=== PATIENT | male | born 1940 | race Caucasian/White ===

== ENCOUNTER → 2017-02-24 | Outpatient (CLI) | payer OTHER ==
[~2017-02-24] MED LIST: AGGRENOX 25 MG1 EACH PO; APAP650 PO; ARTIFICIAL TEAR15 M1 OPHTHALMIC; ATORVASTATIN CA40 MG PO; BENADRYL25 MG PO; CO-ENZYME Q-1010 MG PO; COREG25 M1 PO; ENOXAPARIN40 MG/0.1 SUBQ; GLIPIZIDE 10 MG10 MG PO; HUMULIN N100 UNIT/1 SUBQ; HYZAAR 100-12.1 EACH PO; LASIX 40 MG TAB40 M2 PO; MEGESTROL400 MG/11 PO; MELATONIN5 M1 PO; METFORMIN HCL500 MG PO; NORVASC5 MG PO; OMEGA-31000 M1 PO; ONDANSETRON HCL4 M2 PO; PIOGLITAZONE15 MG PO; PROTONIX40 M1 PO; PROVIGIL 200 M200 M1 PO; REMERON15 MG PO; SERTRALINE HCL50 MG PO; TUMS PO; VITAMIN B-12500 MCG PO; VITAMIN D1000 UNI1 PO; VITAMIN D5000 UNIT PO; XALATAN2.5 ML OPHTHALMIC
== END ==
LOC: M.WC 02:10
DX: E11.622 Type 2 diabetes mellitus with other skin ulcer (principal); L97.221 Non-pressure chronic ulcer of left calf limited to breakdown of skin; I70.248 Atherosclerosis of native arteries of left leg with ulceration of other part of lower leg; I87.312 Chronic venous hypertension (idiopathic) with ulcer of left lower extremity; I25.10 Atherosclerotic heart disease of native coronary artery without angina pectoris; E03.9 Hypothyroidism, unspecified; F33.1 Major depressive disorder, recurrent, moderate; E11.40 Type 2 diabetes mellitus with diabetic neuropathy, unspecified; E11.22 Type 2 diabetes mellitus with diabetic chronic kidney disease; I12.9 Hypertensive chronic kidney disease with stage 1 through stage 4 chronic kidney disease, or unspecified chronic kidney disease; N18.9 Chronic kidney disease, unspecified; Z87.891 Personal history of nicotine dependence

== ENCOUNTER → 2017-03-10 | Outpatient (CLI) | payer OTHER | LOC: M.WC 02:20 | DX: E11.622 Type 2 diabetes mellitus with other skin ulcer (principal); I87.312 Chronic venous hypertension (idiopathic) with ulcer of left lower extremity; I70.248 Atherosclerosis of native arteries of left leg with ulceration of other part of lower leg; L97.221 Non-pressure chronic ulcer of left calf limited to breakdown of skin; I25.10 Atherosclerotic heart disease of native coronary artery without angina pectoris; E03.8 Other specified hypothyroidism; F33.1 Major depressive disorder, recurrent, moderate; E11.40 Type 2 diabetes mellitus with diabetic neuropathy, unspecified; E11.22 Type 2 diabetes mellitus with diabetic chronic kidney disease; I12.9 Hypertensive chronic kidney disease with stage 1 through stage 4 chronic kidney disease, or unspecified chronic kidney disease; N18.9 Chronic kidney disease, unspecified; Z87.891 Personal history of nicotine dependence ==

== ENCOUNTER → 2017-03-24 | Outpatient (CLI) | payer OTHER | LOC: M.WC 01:45 | DX: E11.622 Type 2 diabetes mellitus with other skin ulcer (principal); I70.248 Atherosclerosis of native arteries of left leg with ulceration of other part of lower leg; L97.221 Non-pressure chronic ulcer of left calf limited to breakdown of skin; I25.10 Atherosclerotic heart disease of native coronary artery without angina pectoris; E03.9 Hypothyroidism, unspecified; F33.1 Major depressive disorder, recurrent, moderate; E11.40 Type 2 diabetes mellitus with diabetic neuropathy, unspecified; E11.22 Type 2 diabetes mellitus with diabetic chronic kidney disease; I12.9 Hypertensive chronic kidney disease with stage 1 through stage 4 chronic kidney disease, or unspecified chronic kidney disease; N18.2 Chronic kidney disease, stage 2 (mild); Z87.891 Personal history of nicotine dependence ==

== ENCOUNTER 2017-10-13 11:13 | Inpatient (IN) | payer OTHER ==
[~2017-10-13] VITALS: Ht 182.9 cm; Wt 108.9 kg
[2017-10-13] MEDS ORDERED: APAP650 PO (11:20)
[2017-10-13] MEDS ORDERED: NORVASC5 MG PO (11:21)
[2017-10-13] MEDS ORDERED: AGGRENOX 25 MG1 EACH PO (11:22)
[2017-10-13] MEDS ORDERED: COREG25 M1 PO (11:24)
[2017-10-13] MEDS ORDERED: VITAMIN D5000 UNIT PO (11:24)
[2017-10-13] MEDS ORDERED: CO-ENZYME Q-1010 MG PO (11:25)
[2017-10-13] MEDS ORDERED: LASIX 40 MG TAB40 M2 PO (11:26)
[2017-10-13] MEDS ORDERED: VITAMIN B-12500 MCG PO (11:26)
[2017-10-13] MEDS ORDERED: GLIPIZIDE 10 MG10 MG PO (11:27)
[2017-10-13] MEDS ORDERED: HUMULIN N100 UNIT/1 SUBQ (11:30)
[2017-10-13] MEDS ORDERED: XALATAN2.5 ML OPHTHALMIC (11:30)
[2017-10-13] MEDS ORDERED: HYZAAR 100-12.1 EACH PO (11:31)
[2017-10-13] MEDS ORDERED: METFORMIN HCL500 MG PO (11:32)
[2017-10-13] MEDS ORDERED: OMEGA-31000 M1 PO (11:37)
[2017-10-13] MEDS ORDERED: PIOGLITAZONE15 MG PO (11:38)
[2017-10-13 11:55] VITALS: BP 140/70
[2017-10-13 20:00] VITALS: BP 138/58
[2017-10-14 04:43] LABS: HEMATOCRIT 43.3 % (42.0-52.0); HEMOGLOBIN 14.7 gm/dL (14.0-18.0); MCH 31.2 pg (26.0-34.0); MCHC 34.1 g/dL (28.0-37.0); MCV 91.5 fL (80.0-100.0); MPV 8.6 fl. (7.2-11.1); RBC 4.73 mil/uL (4.50-6.00); RDW-CV 14.9 % (10.5-14.5); WBC 12.1 thou/uL (4.0-11.0)
[2017-10-14 04:56] LABS: CREATININE 1.3 mg/dL (0.6-1.3)
[2017-10-14 08:23] VITALS: BP 174/63
[2017-10-14 19:50] VITALS: BP 110/34
[2017-10-15 05:30] LABS: URINE BILIRUBIN NEGATIVE (Negative); URINE BLOOD NEGATIVE (Negative); URINE CLARITY CLEAR; URINE COLOR YELLOW; URINE GLUCOSE-RANDOM NEGATIVE (Negative); URINE KETONES NEGATIVE (Negative); URINE LEUKOCYTES-REFLEX NEGATIVE (Negative); URINE NITRITE-REFLEX NEGATIVE (Negative); URINE PROTEIN NEGATIVE (Negative); URINE UROBILINOGEN 0.2 E.U./dl (0.2-1.0)
[2017-10-15 08:00] VITALS: BP 157/70
[2017-10-15 20:00] VITALS: BP 114/47
[2017-10-16 08:00] VITALS: BP 130/57
[2017-10-16 20:00] VITALS: BP 141/62
[2017-10-17 08:00] VITALS: BP 136/60
[2017-10-17 19:45] VITALS: BP 135/54
[2017-10-18 04:57] LABS: CHOLESTEROL 138 mg/dL (<200); HDL CHOLESTEROL 45 mg/dL (>40); LDL CHOLESTEROL 70 mg/dL (<100); TC:HDL 3.1 Ratio (Not establshd); TRIGLYCERIDE 115 mg/dL (<150); VLDL 23 mg/dL (<40)
[2017-10-18 05:01] LABS: SERUM ASSESSMENT Clear
[2017-10-18 08:03] VITALS: BP 145/56
[2017-10-18 20:20] VITALS: BP 102/57
[2017-10-19 08:00] VITALS: BP 117/60
[2017-10-19 20:00] VITALS: BP 143/56
[2017-10-20 07:30] VITALS: BP 139/53
[2017-10-20 17:18] VITALS: BP 138/53
[2017-10-20 20:00] VITALS: BP 150/52
[2017-10-21 08:00] VITALS: BP 152/63
[2017-10-21 19:32] VITALS: BP 110/40
[2017-10-22 08:00] VITALS: BP 128/40
[2017-10-22 19:24] VITALS: BP 114/40
[2017-10-23 05:08] LABS: HEMATOCRIT 37.9 % (42.0-52.0); HEMOGLOBIN 13.1 gm/dL (14.0-18.0); MCH 31.5 pg (26.0-34.0); MCHC 34.5 g/dL (28.0-37.0); MCV 91.4 fL (80.0-100.0); MPV 8.9 fl. (7.2-11.1); RBC 4.15 mil/uL (4.50-6.00); RDW-CV 14.6 % (10.5-14.5); WBC 13.7 thou/uL (4.0-11.0)
[2017-10-23 05:32] LABS: CALCIUM 9.1 mg/dL (8.5-10.1); MAGNESIUM 2.4 mg/dL (1.8-2.4); POTASSIUM 4.4 mmol/L (3.5-5.1); TOTAL BILIRUBIN 0.4 mg/dL (<0.1-1.0); TOTAL PROTEIN 6.7 g/dL (6.4-8.2)
[2017-10-23 08:15] VITALS: BP 152/57
[2017-10-23 20:00] VITALS: BP 132/43
[2017-10-24 05:00] LABS: CALCIUM 8.9 mg/dL (8.5-10.1); CREATININE 1.5 mg/dL (0.6-1.3); POTASSIUM 4.9 mmol/L (3.5-5.1)
[2017-10-24 08:15] VITALS: BP 136/34
[2017-10-24 17:00] VITALS: BP 153/47
[2017-10-24 19:25] VITALS: BP 119/32
[2017-10-25 07:30] VITALS: BP 150/54
[2017-10-25 17:15] VITALS: BP 147/48
[2017-10-25 20:00] VITALS: BP 133/47
[2017-10-26 07:55] VITALS: BP 168/68
[2017-10-26 18:55] VITALS: BP 162/51
[2017-10-26 21:10] VITALS: BP 137/55
[2017-10-27 04:33] LABS: HEMATOCRIT 36.6 % (42.0-52.0); HEMOGLOBIN 12.2 gm/dL (14.0-18.0); MCH 30.4 pg (26.0-34.0); MCHC 33.2 g/dL (28.0-37.0); MCV 91.4 fL (80.0-100.0); MPV 7.9 fl. (7.2-11.1); RDW-CV 14.2 % (10.5-14.5); WBC 16.4 thou/uL (4.0-11.0)
[2017-10-27 04:58] LABS: ALBUMIN 2.5 g/dL (3.4-5.0); CALCIUM 8.7 mg/dL (8.5-10.1); CREATININE 1.1 mg/dL (0.6-1.3); POTASSIUM 4.6 mmol/L (3.5-5.1); TOTAL BILIRUBIN 0.4 mg/dL (<0.1-1.0); TOTAL PROTEIN 6.9 g/dL (6.4-8.2)
[2017-10-27 08:00] VITALS: BP 187/70
[2017-10-27 19:58] VITALS: BP 157/52
[2017-10-28 08:00] VITALS: BP 151/59
[2017-10-28 19:45] VITALS: BP 117/54
[2017-10-29 07:30] VITALS: BP 165/62
[2017-10-29 17:15] VITALS: BP 137/53
[2017-10-29 19:45] VITALS: BP 142/85
[2017-10-30 08:05] VITALS: BP 166/66
[2017-10-30 20:00] VITALS: BP 135/51
[2017-10-31 07:30] VITALS: BP 165/68
[2017-10-31 17:00] VITALS: BP 125/67
[2017-10-31 20:00] VITALS: BP 115/49
[2017-11-01 08:00] VITALS: BP 144/57
[2017-11-01 09:00] VITALS: BP 144/57
[2017-11-01 20:00] VITALS: BP 113/44
[2017-11-02 08:00] VITALS: BP 150/48
[2017-11-02 20:00] VITALS: BP 128/53
[2017-11-03 08:24] VITALS: BP 157/67
[2017-11-03 19:50] VITALS: BP 89/44
[2017-11-04 08:02] VITALS: BP 145/52
[2017-11-04 19:50] VITALS: BP 111/50
[2017-11-05 08:00] VITALS: BP 141/54
[2017-11-05 16:48] VITALS: BP 100/46
[2017-11-05 20:00] VITALS: BP 125/53
[2017-11-06 07:30] VITALS: BP 167/60
[2017-11-06 17:00] VITALS: BP 116/44
[2017-11-06 19:00] VITALS: BP 114/60
[2017-11-07 07:15] VITALS: BP 144/64
[2017-11-07 17:00] VITALS: BP 121/48
[2017-11-07 19:30] VITALS: BP 113/49
[2017-11-08 08:25] VITALS: BP 152/53
[2017-11-08 19:26] VITALS: BP 106/46
[2017-11-09 09:00] VITALS: BP 110/54
[2017-11-09 19:54] VITALS: BP 95/42
[2017-11-10 01:58] VITALS: BP 95/42
[2017-11-10] MEDS ORDERED: ARTIFICIAL TEAR15 M1 OPHTHALMIC ×2 (02:20→02:21)
[2017-11-10] MEDS ORDERED: BENADRYL25 MG PO (02:22)
[2017-11-10] MEDS ORDERED: ATORVASTATIN CA40 MG PO (02:25)
[2017-11-10] MEDS ORDERED: ENOXAPARIN40 MG/0.1 SUBQ (02:27)
[2017-11-10] MEDS ORDERED: MEGESTROL400 MG/11 PO (02:29)
[2017-11-10] MEDS ORDERED: MELATONIN5 M1 PO (02:30)
[2017-11-10] MEDS ORDERED: PROTONIX40 M1 PO (02:31)
[2017-11-10] MEDS ORDERED: PROVIGIL 200 M200 M1 PO (02:33)
[2017-11-10] MEDS ORDERED: REMERON15 MG PO (02:36)
[2017-11-10] MEDS ORDERED: TUMS PO (02:38)
[2017-11-10] MEDS ORDERED: VITAMIN D1000 UNI1 PO (02:41)
[2017-11-10] MEDS ORDERED: XALATAN2.5 ML OPHTHALMIC (02:53)
[2017-11-10] MEDS ORDERED: ONDANSETRON HCL4 M2 PO (02:57)
[2017-11-10] MEDS ORDERED: SERTRALINE HCL50 MG PO (02:58)
[2017-11-10] MEDS ORDERED: GLIPIZIDE 10 MG10 MG PO (03:21)
[2017-11-10 08:00] VITALS: BP 147/61
--- NOTE | 2017-11-10 13:18 | PLAN ---
[address] [address] REHAB UNIT PLAN OF CARE Name: GIOVANNA YUAN Room: [address] IN M.R.#: [id number] Admission: 10/13/17 Attend Phys: Theodora Richard DO Discharge: Date of : 42 Report #: [id number] THIS REPORT FOR: //name// CC: Meliton Richard DATE OF SERVICE: 10/14/2017 This is a female admitted to inpatient rehabilitation to facilitate safe discharge home status post right cerebrovascular accident with left hemiparesis, upper and lower extremity, also multiple medical comorbidities. Previous level of function was independent with activities of daily living. Current level of function is minimum to moderate assistance of 1-2 depending on therapy, activity and time of day. Estimated length of stay 14-16 days. MEDICAL PROGNOSIS: Good. REHABILITATION PROGNOSIS: Good. Physical therapy will see the patient 60-90 minutes per day, 5 days per week, working on upper and lower body strength, balance, coordination, navigation. Occupational therapy will work with the patient 60-90 minutes per day, 5 days per week, working on upper and lower body strength, balance, coordination, navigation, bathing, dressing and toileting. Speech and language pathology will work with the patient 30-90 minutes per day, 5 days per week, working on memory, cognition, expression. This is an overall plan of care and may change from time to time. We will team him weekly and make changes to plan of care as needed. <ELECTRONICALLY SIGNED> By: Theodora Richard DO 11/10/17 1318 1315 [id number] Rihcard DO /nt
--- NOTE | 2017-11-10 13:18 | H ---
[address] [place] [address] HISTORY AND PHYSICAL Name: GIOVANNA YUAN Room: [address] IN .R.#: [id number] Admission: 10/13/17 Attend Phys: Theodora Richard DO Discharge: Date of : 42 Report #: [id number] THIS REPORT FOR: //name// CC: Meliton Richard DATE OF SERVICE: 10/13/2017 HISTORY OF PRESENT ILLNESS: Right cerebrovascular accident with left hemiparesis with upper and lower body residual, no significant changes since the preadmission screening. Previous level of function was modified independent to independent with activities of daily living. Current level of function is lwzkuzf-[id number]-[id number] of 1-2 depending on therapy, activity and time of the day. Estimated length of stay 14-16 days with discharge disposition to the home setting with supportive family where he has supervision and an accommodative house. PAST MEDICAL HISTORY: HTN DMII HLD CAD CKD2 GERD PVD [place] OA OBESITY PERIPHERAL NEUROPATHY PAST SURGICAL HISTORY: CABG ANGIOPLASTY WITH STENT RTC REPAIR LLE STENT B/L CATARACT SX MEDICATIONS: Reviewed, reconciled and are available in the MAR. ALLERGIES: PLAVIX REVIEW OF SYSTEMS: A 14-point review of systems done was negative except as mentioned in HPI, specifically no fever, chest pain, shortness of breath, [address] [place] [address] HISTORY AND PHYSICAL Name: GIOVANNA YUAN Room: [facility] ADM IN .R.#: [id number] Admission: 10/13/17 Attend Phys: Theodora Richard DO Discharge: Date of : 42 Report #: [id number] abdominal pain or distention. PHYSICAL EXAMINATION: AO, NAD VSS HEAD: ATRAUMATIC PEERL LUNG: SYMMETRIC SKIN: WARM AND DRY NEURO: LEFT UE AND LE HEMIPARESIS ASSESSMENT: 1. Right cerebrovascular accident with left residual hemiparesis, upper and lower extremity. 2. Multiple medical comorbidities requiring acute daily medical care. PLAN: 1. PT, OT, speech, language, case management, nursing and HIMS to make evaluations and recommendations. 2. We will team HIM weekly and make changes to plan of care as needed. <ELECTRONICALLY SIGNED> By: Theodora Richard DO 11/10/17 1318 1313 [id number] Richard DO /nt
[2017-11-10 19:55] VITALS: BP 95/38
[2017-11-10 21:02] VITALS: BP 108/46
[2017-11-11] MEDS ORDERED: METFORMIN HCL500 MG PO (03:59)
[2017-11-11 04:14] VITALS: BP 95/42
[2017-11-11 08:23] VITALS: BP 136/53
--- NOTE | 2017-12-15 10:39 | D ---
[facility] [address] [place] [address] DISCHARGE SUMMARY Name: GIOVANNA YUAN Room: [facility] IN M.R.#: [id number] Admission: 10/13/17 Attend Phys: Theodora Richard DO Discharge: 11/11/17 Date of : 42 Report #: [id number] THIS REPORT FOR: //name// CC: Meliton Richard DISCHARGE DIAGNOSIS: Cerebrovascular accident. DISCHARGE DISPOSITION: To skilled level of care for subacute rehabilitation, full code. REHABILITATION PROGNOSIS: Fair. He will participate in physical and occupational therapy as well as speech language pathology. Full weightbearing. DIET: Carb-controlled, ADA. Fingerstick blood glucose q.a.c. and at bedtime. FOLLOWUP: With Neurology in 2-4 weeks, primary care physician 1 week after discharge. MEDICATIONS: Reviewed and reconciled by myself and are available in the MAR. DISCHARGE PHYSICAL EXAMINATION: GENERAL: Alert, oriented, no apparent distress. VITAL SIGNS: Reviewed and are stable. HEENT: Atraumatic, normocephalic. Pupils equal, round, reactive. ABDOMEN: Soft, nontender, nondistended. NEUROLOGIC: Cranial nerves 2-12 are grossly intact with no focal neuro deficits. He does have hemiparesis on the left upper and lower extremity flaccid nature, some mild left neglect. <ELECTRONICALLY SIGNED> By: Theodora Richard DO 12/15/17 1039 1341 [id number] Richard DO /cheri
== END 2017-11-11 16:24 | DRG 65 ==
LOC: M.REH 11:13
PROVIDERS: Family Medicine; Internal Medicine; ADMIT Physical Medicine & Rehabilitation
DX: I63.9 Cerebral infarction, unspecified (principal); I13.0 Hypertensive heart and chronic kidney disease with heart failure and stage 1 through stage 4 chronic kidney disease, or unspecified chronic kidney disease; G81.94 Hemiplegia, unspecified affecting left nondominant side; I50.32 Chronic diastolic (congestive) heart failure; E87.1 Hypo-osmolality and hyponatremia; E78.5 Hyperlipidemia, unspecified; I25.10 Atherosclerotic heart disease of native coronary artery without angina pectoris; E11.51 Type 2 diabetes mellitus with diabetic peripheral angiopathy without gangrene; H40.9 Unspecified glaucoma; L89.150 Pressure ulcer of sacral region, unstageable; R29.6 Repeated falls; M19.90 Unspecified osteoarthritis, unspecified site; E66.9 Obesity, unspecified; K21.9 Gastro-esophageal reflux disease without esophagitis; E11.42 Type 2 diabetes mellitus with diabetic polyneuropathy; N18.3 Chronic kidney disease, stage 3 (moderate); J44.9 Chronic obstructive pulmonary disease, unspecified; E11.22 Type 2 diabetes mellitus with diabetic chronic kidney disease; S83.206A Unspecified tear of unspecified meniscus, current injury, right knee, initial encounter; X58.XXXA Exposure to other specified factors, initial encounter; F32.9 Major depressive disorder, single episode, unspecified; I87.2 Venous insufficiency (chronic) (peripheral); Z95.1 Presence of aortocoronary bypass graft; Z95.5 Presence of coronary angioplasty implant and graft; Z98.42 Cataract extraction status, left eye; Z98.41 Cataract extraction status, right eye; Z88.8 Allergy status to other drugs, medicaments and biological substances; Z79.899 Other long term (current) drug therapy; Z79.82 Long term (current) use of aspirin; Z79.84 Long term (current) use of oral hypoglycemic drugs; Z87.891 Personal history of nicotine dependence; Z68.31 Body mass index [BMI] 31.0-31.9, adult; Z68.32 Body mass index [BMI] 32.0-32.9, adult; Z79.4 Long term (current) use of insulin; Y93.89 Activity, other specified; Y92.89 Other specified places as the place of occurrence of the external cause; Y99.8 Other external cause status